=== PATIENT | female | born 1995 | race Caucasian/White ===

== ENCOUNTER 2023-02-12 13:07 | Emergency (ER) | payer OTHER ==
[2023-02-12 13:11] VITALS: BP 133/61; PULSE 95; RESP 18; TEMP 97.8; BMI 42.9
[2023-02-12] MEDS ORDERED: ACETAMINOPHEN 500 MG TABLET (FP) PO ONE (14:30)
[2023-02-12] MEDS ORDERED: ACETAMINOPHEN 500 MG TABLET (FP) ONE (14:41)
[2023-02-12 15:18] LABS: THROAT:GRP A STREP NOT DETECTED (NOTDETECTED)
[2023-02-12] MEDS ORDERED: KETOROLAC TROMETHAMINE 15 MG/ML VIAL IM ONE (15:26)
[2023-02-12] MEDS ORDERED: KETOROLAC TROMETHAMINE 15 MG/ML VIAL ONE (15:27)
== END 2023-02-12 15:41 | disposition home or self-care (01) ==
LOC: JERFT 13:07
PROC: 3E023GC Introduction of Other Therapeutic Substance into Muscle, Percutaneous Approach (ICD-10-PCS; principal; 2023-02-12)
DX: S39.012A Strain of muscle, fascia and tendon of lower back, initial encounter (principal); R07.0 Pain in throat; M79.10 Myalgia, unspecified site; Y99.9 Unspecified external cause status
CPT/HCPCS: 0241U-QW; 84703; 87651; 99284-25

== ENCOUNTER 2023-02-14 13:10 | Emergency (ER) | payer OTHER ==
[2023-02-14 13:16] VITALS: BP 129/69; PULSE 95; RESP 18; TEMP 97.4; BMI 42.9
[2023-02-14] MEDS ORDERED: AMOXICILLIN 500 MG CAPSULE (FP) PO ONE (13:32)
[2023-02-14] MEDS ORDERED: AMOX TR/POT CLAV 500MG/125MG TABLETS (FP) ONE (13:33)
== END 2023-02-14 13:39 | disposition home or self-care (01) ==
LOC: JERFT 13:10
DX: J02.0 Streptococcal pharyngitis (principal); H66.003 Acute suppurative otitis media without spontaneous rupture of ear drum, bilateral; R50.9 Fever, unspecified
CPT/HCPCS: 99283-25

== ENCOUNTER 2023-11-24 06:05 | Inpatient (IN) | payer OTHER ==
[2023-11-24] MEDS ORDERED: AMPICILLIN - 2 GM in SODIUM CHLORIDE 100 ML IVPB ONE (11:13)
[2023-11-24] MEDS ORDERED: AMPICILLIN SODIUM 2 GM VIAL ONE (11:30)
[2023-11-24] MEDS: LACTATED RINGERS SOLUTION 1,000 ML/1,000 ML INFUS.BAG IV SCH ×2 (12:05→17:00)
[2023-11-24 12:12] LABS: INR 1.04 (0.83-1.09); PROTHROMBIN TIME (PATIENT) 12.1 SEC (9.7-13.0)
[2023-11-24 12:15] LABS: ACTIVATED PTT 26.6 SECONDS (25.2-36.5)
[2023-11-24 12:19] LABS: POTASSIUM 4.4 mmol/L (3.5-5.1)
[2023-11-24 12:20] LABS: CALCIUM 9.6 mg/dL (8.5-10.1)
[2023-11-24 12:21] LABS: BLOOD UREA NITROGEN 6.8 mg/dL (7-18)
[2023-11-24 12:24] LABS: CREATININE 0.6 mg/dL (0.55-1.3)
[2023-11-24 12:26] VITALS: BMI 47.2
[2023-11-24] MEDS ORDERED: OXYTOCIN 30 UNITS in 0.9% NS 30 UNIT/500 ML INFUS.BAG IVPB ONE (12:29)
[2023-11-24] MEDS: OXYTOCIN 30 UNITS in 0.9% NS 30 UNIT/500 ML INFUS.BAG IVPB SCH (12:35)
[2023-11-24 12:38] LABS: BASO % 0.3 % (0-2.0); EOS % 0.6 % (0-4.5); HEMATOCRIT 38.6 % (32.4-45.2); HEMOGLOBIN 12.5 GM/dL (10.7-15.3); LYMPH % 14.7 % (8-40); MCH 27.7 pg (25.7-33.7); MCHC 32.3 g/dl (32.0-36.0); MEAN CELL VOLUME 85.7 fl (80-96); MEAN PLT VOLUME 10.3 fl (7.5-11.1); NEUT % 80.4 % (42.8-82.8); PLATELET COUNT 277 10^3/uL (134-434); RBC 4.51 M/mm3 (3.60-5.2); RDW 16.4 % (11.6-15.6); WHITE BLOOD COUNT 13.9 K/mm3 (4.0-10.0)
[2023-11-24 13:15] LABS: HIV INTERPRETATION NEGATIVE (NEGATIVE)
[2023-11-24 14:03] LABS: POC NITRAZINE NEG
[2023-11-24] MEDS ORDERED: AMPICILLIN SODIUM 1 GM VIAL ONE ×3 (15:14→23:17)
[2023-11-24] MEDS: AMPICILLIN - 1 GM in SODIUM CHLORIDE 100 ML IVPB SCH ×3 (15:20→23:30)
[2023-11-24] MEDS ORDERED: BUTORPHANOL TARTRATE 2 MG/ML VIAL IVPUSH ONE (16:42)
[2023-11-24] MEDS ORDERED: PROMETHAZINE HCL 25 MG/1 ML VIAL IVPB ONE (16:42)
[2023-11-24] MEDS ORDERED: BUTORPHANOL TARTRATE 2 MG/ML VIAL ONE (16:43)
[2023-11-24] MEDS ORDERED: FENTANYL/BUPIVACAINE/NS/PF - PCEA - 50 ML DISP.SYRIN EP ONE (21:08)
[2023-11-24] MEDS ORDERED: NALOXONE HCL 0.4 MG/ML VIAL IVPUSH PRN (21:42)
[2023-11-24] MEDS ORDERED: FENTANYL/BUPIVACAINE/NS/PF - PCEA - 50 ML DISP.SYRIN EP SCH (21:45)
[2023-11-24] MEDS ORDERED: ACETAMINOPHEN INJECTION 100 ML IVPB ONE (23:00)
[2023-11-24] MEDS ORDERED: ACETAMINOPHEN 1000 MG/100 ML BAG IVPB PRN (23:18)
[2023-11-25] MEDS ORDERED: DEXTROSE 5% IVPB ONE ×2 (00:30)
[2023-11-25] MEDS ORDERED: GENTAMICIN IVPB ONE ×2 (00:30)
[2023-11-25] MEDS ORDERED: WATER IVPB ONE ×2 (00:30)
[2023-11-25] MEDS ORDERED: FENTANYL/BUPIVACAINE/NS/PF - PCEA - 50 ML DISP.SYRIN EP ONE (01:17)
[2023-11-25] MEDS ORDERED: OXYTOCIN 20 UNITS in 0.9% NS 20 UNIT/1,000 ML INFUS.BAG IV ONE (02:20)
[2023-11-25] MEDS ORDERED: MISOPROSTOL 200 MCG TABLET ONE (02:22)
[2023-11-25] MEDS ORDERED: WITCH HAZEL 50% (TUCKS) 40 PAD/JAR PAD TP PRN (03:04)
[2023-11-25] MEDS ORDERED: BISACODYL 10 MG SUPP.RECT RC PRN (03:04)
[2023-11-25] MEDS ORDERED: METHYLERGONOVINE MALEATE 0.2 MG/1 ML AMP IM PRN (03:04)
[2023-11-25] MEDS ORDERED: ACETAMINOPHEN 325 MG TABLET (FP) PO PRN (03:04)
[2023-11-25] MEDS ORDERED: BENZOCAINE 20% 57 GM BOTTLE TP PRN (03:04)
[2023-11-25] MEDS ORDERED: BENZOCAINE 28 GM HEMORRHOIDAL OINTMENT TP PRN (03:04)
[2023-11-25] MEDS ORDERED: oxyCODONE HCL 5 MG TABLET PO PRN (03:04)
[2023-11-25] MEDS ORDERED: OXYTOCIN 20 UNITS in 0.9% NS 20 UNIT/1,000 ML INFUS.BAG IV SCH (03:15)
[2023-11-25 03:22] LABS: CORD BASE EXCESS -7.9 mmol/L (0-2); CORD HCO3 19.6 mmHg (20-29); CORD PCO2 47.4 mmHg (30-78); CORD pH 7.235 (7.14-7.44)
[2023-11-25 03:27] LABS: CORD HCO3 19.9 mmHg (20-29); CORD PCO2 54.9 mmHg (30-78); CORD pH 7.178 (7.14-7.44)
[2023-11-25] MEDS ORDERED: ACETAMINOPHEN 325 MG TABLET (FP) ONE (03:41)
[2023-11-25] MEDS: AMPICILLIN - 1 GM in SODIUM CHLORIDE 100 ML IVPB SCH (06:24)
[2023-11-25] MEDS: IBUPROFEN 600 MG TABLET (FP) PO PRN ×2 (14:10→20:57)
[2023-11-25] MEDS: LACTATED RINGERS SOLUTION 1,000 ML/1,000 ML INFUS.BAG IV SCH (21:11)
[2023-11-25] MEDS: OXYTOCIN 30 UNITS in 0.9% NS 30 UNIT/500 ML INFUS.BAG IVPB SCH (21:11)
[2023-11-26 07:46] LABS: BASO % 1.2 % (0-2.0); EOS % 1.8 % (0-4.5); HEMATOCRIT 33.8 % (32.4-45.2); HEMOGLOBIN 10.7 GM/dL (10.7-15.3); LYMPH % 21.9 % (8-40); MCH 27.6 pg (25.7-33.7); MCHC 31.7 g/dl (32.0-36.0); MEAN PLT VOLUME 9.9 fl (7.5-11.1); MONO % 4.8 % (3.8-10.2); NEUT % 70.3 % (42.8-82.8); PLATELET COUNT 224 10^3/uL (134-434); RBC 3.89 M/mm3 (3.60-5.2); RDW 16.7 % (11.6-15.6)
[2023-11-26] MEDS: IBUPROFEN 600 MG TABLET (FP) PO PRN ×2 (09:09→20:24)
[2023-11-26] MEDS: DOCUSATE SODIUM 100 MG CAPSULE (FP) PO SCH ×3 (09:11→21:02)
[2023-11-26] MEDS ORDERED: SENNOSIDES/DOCUSATE COMBO (SENNA PLUS) TABLET (UD) PO PRN (22:00)
[2023-11-27] MEDS: IBUPROFEN 600 MG TABLET (FP) PO PRN (10:33)
[2023-11-27] MEDS: DOCUSATE SODIUM 100 MG CAPSULE (FP) PO SCH (10:34)
[2023-11-27 12:47] VITALS: BP 128/83; PULSE 101; RESP 18; TEMP 98
== END 2023-11-27 17:50 | disposition home or self-care (01) | DRG 806 ==
LOC: JDEL 06:05 → JLDR 06:48 → UNDOADMIN 06:48 → JLDR 11:10 → J3W 11-25 05:50
PROVIDERS: ADMIT Obstetrics & Gynecology; ATTEND Obstetrics & Gynecology
PROC: 10D07Z6 Extraction of Products of Conception, Vacuum, Via Natural or Artificial Opening (ICD-10-PCS; principal; 2023-11-25)
PROC: 0KQM0ZZ Repair Perineum Muscle, Open Approach (ICD-10-PCS; 2023-11-25)
PROC: 10907ZC Drainage of Amniotic Fluid, Therapeutic from Products of Conception, Via Natural or Artificial Opening (ICD-10-PCS; 2023-11-25)
DX: O41.1230 Chorioamnionitis, third trimester, not applicable or unspecified (principal); O75.2 Pyrexia during labor, not elsewhere classified; Z3A.38 38 weeks gestation of pregnancy; Z37.0 Single live birth; P03.82 Meconium passage during delivery; O99.891 Other specified diseases and conditions complicating pregnancy; O70.1 Second degree perineal laceration during delivery; O66.5 Attempted application of vacuum extractor and forceps
CPT/HCPCS: 36415; 36600; 59025; 80048; 82803; 83986-QW; 85025; 85610; 85730; 86780; 86850; 86900; 86901; 87389; 88307-TC